=== PATIENT | male | born 1990 | race American Indian/Alaskan Native ===

== ENCOUNTER 2018-02-04 03:36 | Observation (INO) | payer SELFPAY ==
[2018-02-04] MEDS ORDERED: Sodium Chloride 0.9% 1,000 ML IV STA ×2 (03:49→05:53)
[2018-02-04] MEDS ORDERED: Morphine 4 mg/ml ISec IVP STA ×2 (03:49→05:03)
--- NOTE | 2018-02-04 03:55 | ED PDOC ---
Arrival/HPI - General Historian: Patient - History of Present Illness Time/Duration: 4-6 hours Symptom Onset: Sudden Symptom Course: Worsening Quality: Aching Severity Level: 8 Activities at Onset: Rest Context: Sitting <Jama Parker - Last Filed: 02/04/18 05:43> <Fede Amaro - Last Filed: 02/04/18 06:31> - General Chief Complaint: Back Pain Time Seen by Provider: 02/04/18 03:46 - History of Present Illness Narrative History of Present Illness (Text): 02/04/18 03:52 Patient is a 28M with a PMH of Kidney stones who comes to the Emergency department after being awoken from sleep in pain in his R. Flank. Onset was sudden. Bending over makes the pain better. Laying flat makes the pain worse. Describes the pain as throbbing. Denies any radiation. The pain has been constant since its onset. Patient denies any fever or chills but does have some nausea, No vomiting. Denies appetite. Denies any urinary symptoms. (Jama Parker) Past Medical History - Provider Review Nursing Documentation Reviewed: Yes <Fede Amaro - Last Filed: 02/04/18 06:31> Family/Social History Family/Social History: Unknown Family HX <Jama Parker - Last Filed: 02/04/18 05:43> - Physician Review Nursing Documentation Reviewed: Yes <Fede Amaro - Last Filed: 02/04/18 06:31> Allergies/Home Meds <Jama Parker - Last Filed: 02/04/18 05:43> <Fede Amaro - Last Filed: 02/04/18 06:31> Allergies/Adverse Reactions: Allergies No Known Allergies Allergy (Verified 02/04/18 03:47) Home Medications: Home Meds Medication Instructions Recorded Confirmed No Known Home Med 02/04/18 02/04/18 Review of Systems - Review of Systems Constitutional: Normal Eyes: Normal ENT: Normal Respiratory: Normal Cardiovascular: Normal Gastrointestinal: Normal Genitourinary Male: absent: Dysuria, Frequency, Hematuria Musculoskeletal: Back Pain Skin: Normal Neurological: Normal Endocrine: absent: Polyuria, Polydipsia Hemo/Lymphatic: Normal Psychiatric: Normal <Jama Parker - Last Filed: 02/04/18 05:43> - Physician Review All systems were reviewed & negative as marked: Yes <SondraFede - Last Filed: 02/04/18 06:31> Physical Exam Temperature: Afebrile Blood Pressure: Normal Pulse: Regular Respiratory Rate: Normal Appearance: Positive for: Well-Appearing, Non-Toxic, Comfortable Pain Distress: None Mental Status: Positive for: Alert and Oriented X 3 - Systems Exam Head: Present: Atraumatic, Normocephalic Pupils: Present: PERRL Extroacular Muscles: Present: EOMI Conjunctiva: Present: Normal Mouth: Present: Moist Mucous Membranes Neck: Present: Normal Range of Motion Respiratory/Chest: Present: Clear to Auscultation, Good Air Exchange. No: Respiratory Distress, Accessory Muscle Use Cardiovascular: Present: Regular Rate and Rhythm, Normal S1, S2. No: Murmurs Abdomen: Present: Normal Bowel Sounds. No: Tenderness, Distention, Peritoneal Signs Back: Present: CVA Tenderness (right) Upper Extremity: Present: Normal Inspection Lower Extremity: Present: Normal Inspection Neurological: Present: GCS=15, CN II-XII Intact, Speech Normal Skin: Present: Warm, Dry, Normal Color. No: Rashes Psychiatric: Present: Alert, Oriented x 3, Normal Concentration. No: Normal Insight <Jama Parker - Last Filed: 02/04/18 05:43> Vital Signs Reviewed: Yes <SondraFede - Last Filed: 02/04/18 06:31> Vital Signs Temp Pulse Resp BP Pulse Ox 02/04/18 06:17 70 17 148/72 98 02/04/18 03:41 98.3 F 70 18 153/73 H 99 Medical Decision Making <Jama Parker - Last Filed: 02/04/18 05:43> - Lab Interpretations I have reviewed the lab results: Yes - RAD Interpretation Heading Maker: Radiologist <Fede Amaro - Last Filed: 02/04/18 06:31> ED Course and Treatment: 02/04/18 05:46 patient in severe pain on initial presentation. 4mg of morphine relieved the pain. Also complaining of nausea relieved by Zofran CT a/p showed 3mm kidney stone with moderate hydronephrosis plan to admit (Jama Parker) Patient Seen With Resident: In agreement with resident note which contains more details about the patient. Patient was seen and evaluated with resident. Came up with plan and treatment together. 28 year old male, presents complaining of sudden onset right flank pain Plan: -- CT ABD & pelvis -- Labs -- Morphine, IV Fluids, Zofran Inj -- Urinalysis -- Reassess and disposition 02/04/18 06:00 Case was d/w who accepted to his service. on consult. ( Fede Amaro) - Lab Interpretations Lab Results: 02/04/18 03:50 02/04/18 03:50 Lab Results 02/04/18 03:50: Sodium 144, Potassium 3.9, Chloride 105, Carbon Dioxide 30, Anion Gap 13, BUN 17, Creatinine 1.0, Est GFR ( Amer) > 60, Est GFR (Non- Af Amer) > 60, Random Glucose 113 H, Calcium 9.9, Magnesium 2.1, Total Bilirubin 0.5, AST 42, ALT 40, Alkaline Phosphatase 78, Total Protein 7.8, Albumin 4.2, Globulin 3.6, Albumin/Globulin Ratio 1.2 02/04/18 03:50: WBC 11.2 H, RBC 4.59, Hgb 15.1, Hct 43.6, MCV 95.0, MCH 32.9, MCHC 34.6, RDW 11.5, Plt Count 233, MPV 9.8, Gran % 50.5, Lymph % (Auto) 39.8 H , [place] % (Auto) 8.1 H, Eos % (Auto) 1.5, Baso % (Auto) 0.1, Gran # 5.65, Lymph # (Auto) 4.5 H, [place] # (Auto) 0.9 H, Eos # (Auto) 0.2, Baso # (Auto) 0.01 - RAD Interpretation Narrative RAD Interpretations (Text): 02/04/18 05:35 IMPRESSION: 1. RIGHT proximal ureteral calculus with vbkk-oq-aylunagd hydronephrosis. 2. Incidental/non-acute findings are described above (Fede Amaro) Radiology Orders: 02/04/18 03:49 ABD & PELVIS W/O PO OR IV CONT [CT] Stat - Medication Orders Current Medication Orders: Sodium Chloride (Sodium Chloride 0.9%) 1,000 mls @ 100 mls/hr IV .Q10H STA Stop: 02/04/18 15:52 Last Admin: 02/04/18 06:15 Dose: 100 mls/hr eMAR Start Stop Document 02/04/18 06:15 IT (Rec: 02/04/18 06:15 IT [id number]) Intravenous Solution Start Date 02/04/18 Start Time 06:15 Discontinued Medications Sodium Chloride (Sodium Chloride 0.9%) 1,000 mls @ 999 mls/hr IV .Q1H1M STA Stop: 02/04/18 04:49 Last Admin: 02/04/18 04:01 Dose: 999 mls/hr eMAR Start Stop Document 02/04/18 04:01 IT (Rec: 02/04/18 04:01 IT [id number]) Intravenous Solution Start Date 02/04/18 Start Time 04:01 End Date 02/04/18 End time 05:01 Total Infusion Time 60 Morphine Sulfate (Morphine) 4 mg IVP STAT STA Stop: 02/04/18 03:50 Last Admin: 02/04/18 04:00 Dose: 4 mg MAR Pain Assessment Document 02/04/18 04:00 IT (Rec: 02/04/18 04:00 IT [id number]) Pain Reassessment Is this a pain reassessment? No Sleep Is patient sleeping during reassessment? No Presence of Pain Presence of Pain Yes Pain Scale Used Pain Scale Used Numeric Location Left, Right or Bilateral Right Pain Location Body Site Abdomen IVP Administration Document 02/04/18 04:00 IT (Rec: 02/04/18 04:00 IT [id number]) Charges for Administration # of IVP Administrations 1 Morphine Sulfate (Morphine) 4 mg IVP STAT STA Stop: 02/04/18 05:04 Last Admin: 02/04/18 05:15 Dose: 4 mg MAR Pain Assessment Document 02/04/18 05:15 IT (Rec: 02/04/18 05:15 IT [id number]) Pain Reassessment Is this a pain reassessment? No Sleep Is patient sleeping during reassessment? No Presence of Pain Presence of Pain Yes Location Left, Right or Bilateral Right Pain Location Body Site Abdomen IVP Administration Document 02/04/18 05:15 IT (Rec: 02/04/18 05:15 IT [id number]) Charges for Administration # of IVP Administrations 1 Ondansetron HCl (Zofran Inj) 4 mg IVP STAT STA Stop: 02/04/18 03:50 Last Admin: 02/04/18 04:00 Dose: 4 mg IVP Administration Document 02/04/18 04:00 IT (Rec: 02/04/18 04:00 IT [id number]) Charges for Administration # of IVP Administrations 1 Tamsulosin HCl (Flomax) 0.4 mg PO STAT STA Stop: 02/04/18 05:25 Last Admin: 02/04/18 05:41 Dose: 0.4 mg - PA / OPERATIONS DEVELOPER / Resident Statement / has reviewed & agrees with the documentation as recorded. / has examined the patient and agrees with the treatment plan. <Jama Parker - Last Filed: 02/04/18 05:43> - PA / OPERATIONS DEVELOPER / Resident Statement / has reviewed & agrees with the documentation as recorded. / has examined the patient and agrees with the treatment plan. - Scribe Statement The provider has reviewed the documentation as recorded by the Scribe <Fede Amaro - Last Filed: 02/04/18 06:31> - Scribe Statement Lenny Pedersen Provider Scribe Attestation: All medical record entries made by the Scribe were at my direction and personally dictated by me. I have reviewed the chart and agree that the record accurately reflects my personal performance of the history, physical exam, medical decision making, and the department course for this patient. I have also personally directed, reviewed, and agree with the discharge instructions and disposition. (Fede Amaro) Disposition/Present on Arrival - Present on Arrival Any Indicators Present on Arrival: No - Disposition Have Diagnosis and Disposition been Completed?: Yes Disposition Time: 05:48 Patient Plan: Admission <Jama Parker - Last Filed: 02/04/18 05:43> - Present on Arrival Any Indicators Present on Arrival: No History of DVT/PE: No History of Uncontrolled Diabetes: No Urinary Catheter: No History of Decub. Ulcer: No History Surgical Site Infection Following: None - Disposition Have Diagnosis and Disposition been Completed?: Yes Disposition Time: 06:05 Patient Plan: Observation <Fede Amaro - Last Filed: 02/04/18 06:31> - Disposition Diagnosis: Nephrolithiasis, Renal colic, Intractable pain Disposition: HOSPITALIZED Patient Problems: Current Active Problems Problem Status Onset Intractable pain Acute Nephrolithiasis Acute Renal colic Acute Condition: GUARDED Forms: [employer] (Moz[place]ican)
[2018-02-04 04:10] LABS: ALB/GLOB RATIO 1.2 (1.1-1.8); ALBUMIN 4.2 g/dL (3.0-4.8); CALCIUM 9.9 mg/dL (8.4-10.5); GFR AFRICAN-AMERICAN > 60; GFR NON-AFRICAN AMERICAN > 60
[2018-02-04 04:17] LABS: ALT/SGPT 40 U/L (7-56); AST/SGOT 42 U/L (17-59); BASO # 0.01 K/mm3 (0.0-2.0); BASO % 0.1 % (0.0-3.0); BLOOD UREA NITROGEN 17 mg/dL (7-21); EOS # 0.2 (0.0-0.7); EOS % 1.5 % (1.5-5.0); GRAN # 5.65 (1.4-6.5); GRAN % 50.5 % (50.0-68.0); HEMOGLOBIN 15.1 g/dL (14.0-18.0); LYMPH # 4.5 (1.2-3.4); LYMPH % 39.8 % (22.0-35.0); MEAN CORPUSCULAR HEMOGLOBIN 32.9 pg (25.0-35.0); MEAN CORPUSCULAR HGB CONC 34.6 g/dl (31.0-37.0); MEAN PLATELET VOLUME 9.8 fl (7.0-11.0); MONO # 0.9 (0.1-0.6); MONO % 8.1 % (1.0-6.0); RBC 4.59 10^6/uL (3.5-6.1); RED CELL DISTRIBUTION WIDTH 11.5 % (11.5-14.5); WHITE BLOOD COUNT 11.2 10^3/ul (4.5-11.0)
--- NOTE | 2018-02-04 05:30 | CT ---
EXAM: CT Abdomen and Pelvis Without Intravenous Contrast CLINICAL HISTORY: 28 years old, male; Pain; Abdominal pain; Additional info: R. Flank pain TECHNIQUE: Axial computed tomography images of the abdomen and pelvis without intravenous contrast. All CT scans at this facility use one or more dose reduction techniques, viz.: automated exposure control; ma/kV adjustment per patient size (including targeted exams where dose is matched to indication; i.e. head); or iterative reconstruction technique. Coronal and sagittal reformatted images were created and reviewed. COMPARISON: No relevant prior studies available. FINDINGS: Limitations: Lack of intravenous contrast. Lower thorax: No acute findings. ABDOMEN: Liver: Unremarkable. Gallbladder and bile ducts: No calcified stones. No ductal dilation. Pancreas: Unremarkable. No ductal dilation. Spleen: No splenomegaly. Adrenals: No mass. Kidneys and ureters: No renal calculi. Fkmn-nm-loilyecf pelvocaliectasis of RIGHT kidney. 0.5 x 0.3 x 0.3 cm calculus within RIGHT proximal ureter. Stomach and bowel: No definite mural thickening. No obstruction. Appendix: No findings to suggest acute appendicitis. PELVIS: Bladder: Unremarkable. No stones. Reproductive: Unremarkable as visualized. ABDOMEN and PELVIS: Intraperitoneal space: No significant fluid collection. No free air. Bones/joints: No acute fracture. Soft tissues: Minimal gynecomastia. Vasculature: Unremarkable. No aneurysm. Lymph nodes: No pathologically enlarged lymph nodes. IMPRESSION: 1. RIGHT proximal ureteral calculus with mslt-xo-kxnabwlg hydronephrosis. 2. Incidental/non-acute findings are described above.
[2018-02-04 05:41] LABS: PH,URINE 5.5 (4.7-8.0); URINE BILIRUBIN SMALL (NEGATIVE); URINE BLOOD LARGE (NEGATIVE); URINE GLUCOSE (UA) NEGATIVE (NEGATIVE); URINE LEUKOCYTE ESTERASE NEGATIVE Leu/uL (NEGATIVE); URINE PROTEIN 100 mg/dL (<30 mg/dL); URINE UROBILINOGEN 0.2 E.U./dL (<1 E.U./dL)
[2018-02-04 06:52] LABS: URINE APPEARANCE CLOUDY (CLEAR); URINE COLOR DARK YELLOW (YELLOW)
[2018-02-04 06:53] LABS: URINE EPITHELIAL CELLS 0 - 2 /hpf (0-5); URINE WBC 0 - 2 /hpf (0-6)
[2018-02-04 06:54] LABS: URINE BACTERIA FEW (NEG); URINE RBC 20 - 25 /hpf (0-2)
[2018-02-04] MEDS: Morphine 4 mg/ml ISec IVP PRN ×2 (10:14→21:27)
[2018-02-04 10:59] VITALS: BMI 23.0
[2018-02-04] MEDS ORDERED: Influenza Vaccine 60 mcg/0.5 mL SYR (4YR UP) IM ONE (14:33)
[2018-02-04] MEDS ORDERED: Sodium Chloride 0.45% 1,000 ML IV SCH (22:30)
[2018-02-05] MEDS: Morphine 4 mg/ml ISec IVP PRN (06:14)
--- NOTE | 2018-02-05 06:44 | PCM.URO ---
Urology Progress Note - Objective Lab Studies: Reviewed (thanks for gu consult kub, repeat labs, out pt management) Intake & Output: Intake & Output 02/04/18 02/04/18 02/05/18 06:59 18:59 06:59 Intake Total 1080 Balance 1080 Weight 170 lb Intake: Oral 1080 Other: # Voids Urine, Voided 2 # Bowel Movements 0 Vital Signs: Vital Signs - 24 hr 02/04/18 02/04/18 02/04/18 08:00 10:51 14:00 Temperature 98.6 F 98.4 F 98.2 F Pulse Rate 72 68 61 Respiratory 18 18 18 Rate Blood Pressure 138/79 146/70 108/69 O2 Sat by Pulse 98 98 Oximetry 02/04/18 22:03 Temperature 98.4 F Pulse Rate 68 Respiratory 18 Rate Blood Pressure 130/86 O2 Sat by Pulse 98 Oximetry
[2018-02-05 07:54] LABS: BLOOD UREA NITROGEN 11 mg/dL (7-21); CALCIUM 9.8 mg/dL (8.4-10.5); GFR AFRICAN-AMERICAN > 60; GFR NON-AFRICAN AMERICAN > 60
[2018-02-05 08:09] VITALS: BP 120/67; PULSE 61; RESP 16; TEMP 98.3; O2SAT 100
--- NOTE | 2018-02-05 10:13 | RAD ---
HISTORY: compare with ct scan/ can we see the stone COMPARISON: No prior. FINDINGS: BOWEL: There is a nonobstructive bowel gas pattern appreciated. Moderate retained fecal material scattered throughout the right and transverse colon segments. No free intrarenal gas or abnormal intra-abdominal calcifications. The psoas margins are adequately defined. BONES: Normal. OTHER FINDINGS: None. IMPRESSION: No active disease.
--- NOTE | 2018-02-06 07:37 | HP ---
A 28-year-old male came in with renal colic. HISTORY OF PRESENT ILLNESS: Patient has been complaining that his pain got worse, came to the ER. He had similar pain a few months ago and was discharged home, but he did have this severe pain, could not stay quiet, came to the ER for evaluations and the patient knows that he had stone and he was evaluated in the Emergency Room. A CT scan noted that he has mild hydronephrosis, hydroureter with right kidney stone at 5 mm and less. Patient denied any nausea, vomiting, fever, or chills. No dizziness. No other complaints. ALLERGIES: PATIENT HAS NO KNOWN ALLERGY. MEDICATIONS: None. SOCIAL HISTORY: No smoking. No drinking. FAMILY HISTORY: Diabetes; otherwise, negative. REVIEW OF SYSTEMS: Negative. PHYSICAL EXAMINATION VITAL SIGNS: Temperature 98.6, heart rate 72, blood pressure 138/79, respirations 18, saturation 98%. HEAD AND NECK: Normal. No JVD. No thyromegaly. CHEST: Clear. Good air entry. CARDIAC: First sound and second sound are normal. ABDOMEN: Soft, nontender. There is mild tenderness in the right renal area. EXTREMITIES: No edema. NEUROLOGICAL: Normal. LABORATORY DATA: White count 11.2, hemoglobin 15.1, hematocrit 43.6, platelets 233.000. Chemistry feliciano, the patient had sodium 144, potassium 3.9, chloride 105, bicarbonate 30, BUN 17, creatinine 1. Blood sugar 113. Liver function test is normal. Urine is negative. Large blood, small bilirubin, red blood cells 20-25 and white cells 0-2. Patient also had CT abdomen and pelvis. Patient had a CT abdomen without intravenous contrast, which shows a right calculus with kjlh-ua-fdfzizxs hydronephrosis and smaller stone was noted in the right ureter, which is 0.5 x 0.3 x 0.3. IMPRESSION AND PLAN: Acute renal colic with acute muyl-tk-efnzawjp hydronephrosis. We will admit the patient on IV fluids, IV morphine p.r.n., put him on Regular diet. We will get a Renal, Urology consult to see the patient; however, the patient may need interventional with the overall findings. We will continue current therapy for now. Jm Martinez MD [facility] # [id number]
--- NOTE | 2018-02-06 11:35 | DS ---
HISTORY OF PRESENT ILLNESS: A 28-year-old male, came in with renal colic. The patient was admitted, IV fluid, on morphine IV. The patient is stable. There is no fever. Was given Levaquin on discharge and his urinalysis shows microscopic hematuria. The patient has a kidney stone before that is 0.5 x 0[address] without IV contrast. Right kidney hydroureter and mild to moderate hydronephrosis. The patient was discharged by Dr. Donahue to follow up for [facility] as outpatient. He was discharged. The patient was physically stable. PHYSICAL EXAMINATION: VITAL SIGNS: His temperature 98.3, heart rate 61, blood pressure 120/67, respirations 16, saturation 100%. HEAD AND NECK: Normal. No JVD. CHEST: Clear. CARDIAC: First sound and second sound normal. ABDOMEN: Soft, nontender. EXTREMITIES: No edema. NEUROLOGICAL: Normal. DISCHARGE DIAGNOSES: 1. Renal colic. 2. Right hydronephrosis. PLAN: Discharge home on Levaquin. See Dr. Donahue in the office. Jm Martinez MD
== END 2018-02-05 14:20 | disposition home or self-care (01) ==
LOC: ED 03:36 → ERH 05:51 → 5RSO 08:41
PROVIDERS: ADMIT Internal Medicine; ATTEND Internal Medicine
DX: N13.2 Hydronephrosis with renal and ureteral calculous obstruction (principal)
CPT/HCPCS: 36415; 74022; 74176; 80048; 80053; 81001; 83735; 85025; 96361; 96374; 96375; 96376; 99285; G0378; J2270; J2405; J7030; J7040

== ENCOUNTER 2018-05-22 11:36 | Emergency (ER) | payer BC ==
[2018-05-22 11:37] VITALS: BMI 23.0
--- NOTE | 2018-05-22 12:30 | ED PDOC ---
Arrival/HPI - General Chief Complaint: Dizziness/Lightheaded Time Seen by Provider: 05/22/18 12:05 Historian: Patient - History of Present Illness Narrative History of Present Illness (Text): 05/22/18 12:06 28 year old male, with past medical history of kidney stones, who works at a recycling plant, present to the emergency department s/p near syncopal episode prior to arrival. Patient states he was at work today when suddenly he felt like he was about to pass out, with feelings of heat, sweating, nausea, and tunnel vision. Patient informs visiting urgent care for the presented symptoms where he was advised to change his diet for possible vertigo. However, because of recurrent episodes of the symptoms, patient presents to the Emergency department for medical evaluation. Patient additionally informs chronic diarrhea and poor diet. Patient currently denies any chest pain, shortness of breath, palpitations, fever, chills, nausea, vomiting, abdominal pain, or any other complaints. Patient denies smoking cigarettes or drinking alcohol, but admits to occasional marijuana use. Time/Duration: Prior to Arrival Symptom Onset: Sudden Symptom Course: Resolved Activities at Onset: Light Context: Work Past Medical History - Provider Review Nursing Documentation Reviewed: Yes - Cardiac Hx Cardiac Disorders: No - Pulmonary Hx Respiratory Disorders: No - Neurological Hx Neurological Disorder: Yes Hx Vertigo: Yes - HEENT Hx HEENT Disorder: No - Renal Hx Renal Disorder: Yes Hx Kidney Stones: Yes - Endocrine/Metabolic Hx Endocrine Disorders: No - Hematological/Oncological Hx Blood Disorders: No - Integumentary Hx Dermatological Disorder: No - Musculoskeletal/Rheumatological Hx Musculoskeletal Disorders: No Hx Falls: No - Gastrointestinal Hx Gastrointestinal Disorders: No - Genitourinary/Gynecological Hx Genitourinary Disorders: Yes Hx Hematuria: Yes Other/Comment: frequency/ dysuria - Psychiatric Hx Psychophysiologic Disorder: No Hx Substance Use: Yes (MARIJUANA) - Surgical History Other/Comment: LEFT HAND SURGERY - Anesthesia Hx Anesthesia: Yes Hx Anesthesia Reactions: No Hx Malignant Hyperthermia: No Family/Social History - Physician Review Nursing Documentation Reviewed: Yes Family/Social History: No Known Family HX Smoking Status: Never Smoked Hx Alcohol Use: No Hx Substance Use: Yes (MARIJUANA) Allergies/Home Meds Allergies/Adverse Reactions: Allergies No Known Allergies Allergy (Verified 05/22/18 11:56) Home Medications: Home Meds Medication Instructions Recorded Confirmed No Known Home Med 02/04/18 05/22/18 Review of Systems - Physician Review All systems were reviewed & negative as marked: Yes - Review of Systems Constitutional: absent: Fevers Respiratory: absent: SOB Cardiovascular: absent: Chest Pain, Palpitations Gastrointestinal: Diarrhea. absent: Abdominal Pain, Nausea, Vomiting Neurological: Dizziness (resolved) Physical Exam - Physical Exam Narrative Physical Exam (Text): 05/22/18 12:06 Gen: VS reviewed, alert, well developed, well nourished, nontoxic, mild distress ENT: dry mucous membrane, normal pharynx Eye: EOMI, PERRL Neck: no JVD, supple, no adenopathy CV: regular rate, regular rhythm, no rubs,no murmur, no gallops, S1, S2, pulses equal and strong Pulm: no distress, clear to auscultation, no wheeze, no rhonchi, breath sounds equal, no rales Abd: soft, nontender, no guarding, no rebound, no rigidity, normal bowel sounds Ext: no edema Skin: good color, no rash, no cyanosis Psych: responds appropriately to questions, normal affect Neuro: oriented x3, CN2-12 intact grossly, motor intact, sensation intact Vital Signs Reviewed: Yes Vital Signs Temp Pulse Resp BP Pulse Ox 05/22/18 13:37 80 18 107/60 98 05/22/18 11:56 98.5 F 83 17 112/59 L 98 Temperature: Afebrile Blood Pressure: Normal Pulse: Regular Respiratory Rate: Normal Appearance: Positive for: Well-Appearing, Non-Toxic, Comfortable Pain Distress: None Mental Status: Positive for: Alert and Oriented X 3 Medical Decision Making ED Course and Treatment: 05/22/18 12:06 Impression: 28 year old male presents to the emergency department s/p near syncopal episode. Plan: --ekg --labs --Chest X-Ray --Urinalysis -- Reassess and disposition Prior Visits: Notes and results from previous visits were reviewed. Progress Notes: 05/22/18 13:04 patient was seen for recurrent episode of near syncope. no acute symptoms prior to events such as headache,chest pain,abdominal pain,back pain, no fhx of sudden cardiac . will [facility] labs, ekg, cxr and reassess. patient is clinically stable and if workup negative appears to be stable for dc and pcp follow up. 05/22/18 13:50 patient remained stable throughout ED course, stable for dc, will refer to pcp, patient also informed for the necessity of cardiology follow up. - Lab Interpretations Lab Results: 05/22/18 12:20 05/22/18 12:20 Lab Results 05/22/18 12:20: Sodium 143, Potassium 4.1, Chloride 102, Carbon Dioxide 29, Anion Gap 17, BUN 15, Creatinine 1.1, Est GFR ( Amer) > 60, Est GFR (Non- Af Amer) > 60, Random Glucose 78, Calcium 9.6, Total Bilirubin 0.9, AST 24, ALT 32, Alkaline Phosphatase 76, Total Protein 8.1, Albumin 4.5, Globulin 3.6, Albumin/Globulin Ratio 1.3 05/22/18 12:20: WBC 7.4 D, RBC 4.52, Hgb 14.9, Hct 42.1, MCV 93.1, MCH 33.0, MCHC 35.4, RDW 11.5, Plt Count 216, MPV 9.8, Gran % 73.0 H, Lymph % (Auto) 20.6 L, [place] % (Auto) 6.2 H, Eos % (Auto) 0.1 L, Baso % (Auto) 0.1, Gran # 5.39, Lymph # (Auto) 1.5, [place] # (Auto) 0.5, Eos # (Auto) 0.0, Baso # (Auto) 0.01 05/22/18 12:10: Urine Color Yellow, Urine Appearance Clear, Urine pH 6.0, Ur Specific [place] >= 1.030, Urine Protein 100 H, Urine Glucose (UA) Negative, Urine Ketones Negative, Urine Blood Negative, Urine Nitrate Negative, Urine Bilirubin Negative, Urine Urobilinogen 0.2, Ur Leukocyte Esterase Negative, Urine RBC 0 - 2, Urine WBC 2 - 5, Ur Epithelial Cells 0 - 2, Amorphous Sediment Few, Urine Bacteria Mod, Coarse Granular Casts Trace H, Urine Other Usperm - RAD Interpretation Narrative RAD Interpretations (Text): 05/22/18 13:06 no focal infiltrate, no ptx, no cardiomegaly 05/22/18 13:20 Chest x-ray reviewed by radiologist, shows; No active disease. Radiology Orders: 05/22/18 12:06 X-RAY [CHEST TWO VIEWS (PA/LAT)] [RAD] Stat Coal Equipment Operator: ED Physician, Radiologist - EKG Interpretation EKG Interpretation (Text): 05/22/18 12:16 NSR @ 77 bpm, nml qrs, nml axis with early repolarization. Interpreted by ED Physician: Yes Type: 12 lead EKG - Scribe Statement The provider has reviewed the documentation as recorded by the Scribe Theodore Garcia, training with Darrin All medical record entries made by the Scribe were at my direction and personally dictated by me. I have reviewed the chart and agree that the record accurately reflects my personal performance of the history, physical exam, medical decision making, and the department course for this patient. I have also personally directed, reviewed, and agree with the discharge instructions and disposition. Disposition/Present on Arrival - Present on Arrival Any Indicators Present on Arrival: No History of DVT/PE: No History of Uncontrolled Diabetes: No Urinary Catheter: No History of Decub. Ulcer: No History Surgical Site Infection Following: None - Disposition Have Diagnosis and Disposition been Completed?: Yes Diagnosis: Near syncope Disposition: HOME/ ROUTINE Disposition Time: 14:00 Patient Problems: Current Active Problems Problem Status Onset Near syncope Acute Condition: GOOD Discharge Instructions (ExitCare): Near Fainting (DC) Print Language: LATVIAN Additional Instructions: stay well hydrated (water). return for any new or worsening symptoms. you must follow up with a primary care doctor. Referrals: [facility] ([facility] [Non-Staff] - Follow up with primary Forms: [employer] ([place]), WORK NOTE
[2018-05-22 12:33] LABS: URINE BILIRUBIN NEGATIVE (NEGATIVE); URINE BLOOD NEGATIVE (NEGATIVE); URINE GLUCOSE (UA) NEGATIVE (NEGATIVE); URINE LEUKOCYTE ESTERASE NEGATIVE Leu/uL (NEGATIVE); URINE PROTEIN 100 mg/dL (<30 mg/dL); URINE UROBILINOGEN 0.2 E.U./dL (<1 E.U./dL)
[2018-05-22 12:35] LABS: URINE APPEARANCE CLEAR (CLEAR); URINE COLOR YELLOW (YELLOW)
[2018-05-22 12:36] LABS: BASO # 0.01 K/mm3 (0.0-2.0); BASO % 0.1 % (0.0-3.0); EOS % 0.1 % (1.5-5.0); GRAN # 5.39 (1.4-6.5); HEMOGLOBIN 14.9 g/dL (14.0-18.0); LYMPH # 1.5 (1.2-3.4); LYMPH % 20.6 % (22.0-35.0); MEAN CELL VOLUME 93.1 fl (80.0-105.0); MEAN CORPUSCULAR HGB CONC 35.4 g/dl (31.0-37.0); MEAN PLATELET VOLUME 9.8 fl (7.0-11.0); MONO # 0.5 (0.1-0.6); MONO % 6.2 % (1.0-6.0); RBC 4.52 10^6/uL (3.5-6.1); RED CELL DISTRIBUTION WIDTH 11.5 % (11.5-14.5); WHITE BLOOD COUNT 7.4 10^3/ul (4.5-11.0)
[2018-05-22 12:45] LABS: ALB/GLOB RATIO 1.3 (1.1-1.8); ALBUMIN 4.5 g/dL (3.0-4.8); ALT/SGPT 32 U/L (7-56); AST/SGOT 24 U/L (17-59); BLOOD UREA NITROGEN 15 mg/dL (7-21); CALCIUM 9.6 mg/dL (8.4-10.5); GFR AFRICAN-AMERICAN > 60; GFR NON-AFRICAN AMERICAN > 60
[2018-05-22 12:46] LABS: URINE BACTERIA MOD (NEG); URINE EPITHELIAL CELLS 0 - 2 /hpf (0-5); URINE RBC 0 - 2 /hpf (0-2)
[2018-05-22 12:48] LABS: URINE AMORPHOUS SEDIMENT FEW; URINE COARSE GRANULAR CAST TRACE /hpf (0-2)
--- NOTE | 2018-05-22 13:05 | RAD ---
HISTORY: Near syncope COMPARISON: No prior. TECHNIQUE: Chest PA and lateral FINDINGS: LUNGS: No active pulmonary disease. PLEURA: No significant pleural effusion identified. No pneumothorax apparent. CARDIOVASCULAR: Normal. OSSEOUS STRUCTURES: No significant abnormalities. VISUALIZED UPPER ABDOMEN: Normal. OTHER FINDINGS: None. IMPRESSION: No active disease.
[2018-05-22 14:00] VITALS: RESP 18
[2018-05-22 14:02] VITALS: BP 109/57; PULSE 72; TEMP 98.9; O2SAT 99
--- NOTE | 2018-05-22 15:40 | CARD ---
APPROVED REPORT EKG Measurement Heart [id number] NM [id number] <Conclusion> Normal sinus rhythm ST elevation, probably due to early repolarization Borderline ECG
== END 2018-05-22 14:01 | disposition home or self-care (01) ==
LOC: ED 11:36
DX: R55 Syncope and collapse (principal)

== ENCOUNTER 2018-11-15 18:41 | Emergency (ER) | payer BC ==
[2018-11-15 19:03] VITALS: BMI 20.9
[2018-11-15 19:07] VITALS: TEMP 99.1
[2018-11-15 20:09] LABS: URINE BILIRUBIN NEGATIVE (NEGATIVE); URINE BLOOD NEGATIVE (NEGATIVE); URINE GLUCOSE (UA) NEGATIVE (NEGATIVE); URINE LEUKOCYTE ESTERASE NEGATIVE Leu/uL (NEGATIVE); URINE PROTEIN 30 mg/dL (<30 mg/dL); URINE UROBILINOGEN 0.2 E.U./dL (<1 E.U./dL)
[2018-11-15 20:25] LABS: URINE APPEARANCE CLEAR (CLEAR); URINE COLOR YELLOW (YELLOW)
[2018-11-15 20:29] LABS: URINE RBC NEGATIVE /hpf (0-2)
[2018-11-15 20:30] LABS: URINE BACTERIA FEW /hpf
--- NOTE | 2018-11-15 20:58 | ED PDOC ---
Arrival/HPI - General Chief Complaint: Male Genitourinary Time Seen by Provider: 11/15/18 18:49 Historian: Patient - History of Present Illness Narrative History of Present Illness (Text): 28 y/o M w/ h/o kidney stones presenting to the Emergency Room with complaint of right sided flank pain present for the past 2 weeks worsened over the last 2 days. The patient reports intermittent colicky pain localized to the right lower lumbar region, but denies nausea, emesis, fevers, dysuria, hematuria or abdominal pain. He reports similar pain several times prior that was self- limited in nature. Of note, the patient reports history of smegma around his penis intermittently in humid conditions that resolved once he took care of his hygiene. He reports a family history of diabetes, but denies polyuria, polyphagia, polydipsia or unintentional weight loss at this time. Time/Duration: > week Symptom Onset: Gradual Symptom Course: Intermittent Severity Level: Moderate Activities at Onset: Rest Context: Home Past Medical History - Provider Review Nursing Documentation Reviewed: Yes - Travel History Have you recently traveled outside [place] w/in the past 3 mons?: No - Infectious Disease Hx of Infectious Diseases: None - Cardiac Hx Cardiac Disorders: No - Pulmonary Hx Respiratory Disorders: No - Neurological Hx Neurological Disorder: Yes Hx Vertigo: Yes - HEENT Hx HEENT Disorder: No - Renal Hx Renal Disorder: Yes Hx Kidney Stones: Yes - Endocrine/Metabolic Hx Endocrine Disorders: No - Hematological/Oncological Hx Blood Disorders: No - Integumentary Hx Dermatological Disorder: No - Musculoskeletal/Rheumatological Hx Musculoskeletal Disorders: No - Gastrointestinal Hx Gastrointestinal Disorders: No - Genitourinary/Gynecological Hx Genitourinary Disorders: Yes Hx Hematuria: Yes Other/Comment: frequency/ dysuria - Psychiatric Hx Psychophysiologic Disorder: No Hx Substance Use: Yes (MARIJUANA) - Surgical History Other/Comment: LEFT HAND SURGERY - Anesthesia Hx Anesthesia: Yes Hx Anesthesia Reactions: No Hx Malignant Hyperthermia: No Family/Social History - Physician Review Nursing Documentation Reviewed: Yes Family/Social History: Unknown Family HX Smoking Status: Never Smoked Hx Alcohol Use: No Hx Substance Use: Yes (MARIJUANA) Allergies/Home Meds Allergies/Adverse Reactions: Allergies No Known Allergies Allergy (Verified 05/22/18 11:56) Home Medications: Home Meds Medication Instructions Recorded Confirmed RX: No Known Home Med 02/04/18 05/22/18 Review of Systems - Physician Review All systems were reviewed & negative as marked: Yes - Review of Systems Gastrointestinal: absent: Abdominal Pain, Stool Changes, Constipation Genitourinary Male: Urinary Output Changes. absent: Dysuria, Frequency, Hematuria Musculoskeletal: Back Pain, Myalgias Physical Exam Vital Signs Reviewed: Yes Vital Signs Temp Pulse Resp BP Pulse Ox 11/15/18 18:41 99.1 F 71 18 132/69 98 Temperature: Afebrile Blood Pressure: Normal Pulse: Regular Respiratory Rate: Normal Appearance: Positive for: Well-Appearing, Non-Toxic, Comfortable Pain Distress: Mild Mental Status: Positive for: Alert and Oriented X 3 - Systems Exam Head: Present: Atraumatic, Normocephalic Pupils: Present: PERRL Extroacular Muscles: Present: EOMI Conjunctiva: Present: Normal Mouth: Present: Moist Mucous Membranes Respiratory/Chest: Present: Clear to Auscultation, Good Air Exchange. No: Respiratory Distress Cardiovascular: Present: Regular Rate and Rhythm, Normal S1, S2. No: Murmurs Abdomen: Present: Normal Bowel Sounds. No: Tenderness, Distention Back: Present: CVA Tenderness (R sided CVA tenderness). No: Paraspinal Tenderness Neurological: Present: GCS=15, CN II-XII Intact, Speech Normal Skin: Present: Warm, Dry, Normal Color. No: Rashes Medical Decision Making ED Course and Treatment: 11/15/18 20:08 Impression 28 y/o M w/ h/o kidney stones presenting with flank pain Differential Diagnosis Included But Is Not Limited To: --Kidney Stone --Pyelonephititis --UTI Plan --UA --Urine Culture --Toradol --Reassess & disposition Progress Notes 11/15/18 20:45 UA shows no evidence of blood or bacteria at this time. Patient updated on findings and advised to continue adequate hydration as well as supportive care for pain with NSAIDs. He reports complete resolution in his symptoms after administration of Toradol. Shared decision making discussion for risk vs benefit of CT/US for definitive visual confirmation for the presence of kidney stones with the patient desiring to postpone and employ watchful waiting for the arise of worsening symptoms. He is advised to follow up with his PCP. He is stable for discharge. - Lab Interpretations Lab Results: Lab Results 11/15/18 19:45: Urine Color Yellow, Urine Appearance Clear, Urine pH 6.0, Ur Specific [place] 1.025, Urine Protein 30 H, Urine Glucose (UA) Negative, Urine Ketones Negative, Urine Blood Negative, Urine Nitrate Negative, Urine Bilirubin Negative, Urine Urobilinogen 0.2, Ur Leukocyte Esterase Negative, Urine RBC Negative, Urine WBC 5 - 10 H, Ur Epithelial Cells 4 - 5, Urine Bacteria Few, Hyaline Casts 2 - 5 I have reviewed the lab results: Yes - Medication Orders Current Medication Orders: Discontinued Medications Ketorolac Tromethamine (Toradol) 30 mg IVP STAT STA Stop: 11/15/18 19:51 Last Admin: 11/15/18 20:00 Dose: 30 mg MAR Pain Assessment Document 11/15/18 20:00 RD (Rec: 11/15/18 20:00 RD [facility] [place] Pain Reassessment Is this a pain reassessment? No Sleep Is patient sleeping during reassessment? No Presence of Pain Presence of Pain Yes IVP Administration Document 11/15/18 20:00 RD (Rec: 11/15/18 20:00 RD [facility] Charges for Administration # of IVP Administrations 1 Disposition/Present on Arrival - Present on Arrival Any Indicators Present on Arrival: No History of DVT/PE: No History of Uncontrolled Diabetes: No Urinary Catheter: No History of Decub. Ulcer: No History Surgical Site Infection Following: None - Disposition Have Diagnosis and Disposition been Completed?: Yes Diagnosis: Flank pain Disposition: HOME/ ROUTINE Disposition Time: 20:58 Patient Plan: Discharge Condition: STABLE Discharge Instructions (ExitCare): Flank Pain (DC) Print Language: LATVIAN Referrals: Ritu Morris MD [Medical Doctor] - Follow up with primary [facility] [place] [facility] [place] - Follow up with primary Forms: 1calendar (Lithuanian)
[2018-11-16 04:59] VITALS: BP 128/70; PULSE 69; RESP 17; O2SAT 100
== END 2018-11-15 21:30 | disposition home or self-care (01) ==
LOC: ED 18:41
DX: R10.9 Unspecified abdominal pain (principal)
CPT/HCPCS: 81001; 87086; 96374; 99283; J1885

== ENCOUNTER 2018-12-01 09:17 | Day surgery (SDC) | payer BC ==
[2018-11-30 14:29] VITALS: BMI 20.4
[2018-12-01] MEDS ORDERED: Propofol 10 mg/ml Inj (20 ML) ONE ×2 (09:29→09:56)
[2018-12-01] MEDS ORDERED: Lactated Ringer's 1,000 ML IV SCH (09:30)
[2018-12-01 09:43] VITALS: O2SAT 100
[2018-12-01 11:03] VITALS: RESP 16
[2018-12-01 14:44] VITALS: BP 106/54; PULSE 54; TEMP 97.7
== END 2018-12-01 13:27 | disposition home or self-care (01) ==
LOC: ENDO 09:17
PROVIDERS: ATTEND Internal Medicine Gastroenterology
DX: K29.70 Gastritis, unspecified, without bleeding (principal); K64.1 Second degree hemorrhoids; R19.7 Diarrhea, unspecified; R63.4 Abnormal weight loss
CPT/HCPCS: 43239; 45380; 88305; 88342; J2001; J2704; J2765; J7120

== ENCOUNTER 2019-03-04 21:53 | Emergency (ER) | payer BC ==
[2019-03-04 21:54] VITALS: BMI 20.4
--- NOTE | 2019-03-04 22:41 | ED PDOC ---
Arrival/HPI - General Historian: Patient - History of Present Illness Narrative History of Present Illness (Text): 03/04/19 22:35 29 year old male, whose past medical history includes chronic cervical spine pain, who presents to the ED after waking up from sleep with right shoulder/neck pain. Patient described pain as tight and denies any recent trauma or fall. Patient states pain is non-radiating and localized over his right shoulder blade. Patient denies any chest pain, shortness of breath, tearing pain, headache, or any other somatic complaints. Time/Duration: Other (this morning) Symptom Onset: Gradual Symptom Course: Unchanged Activities at Onset: Light Context: Home <Otto Faustin - Last Filed: 03/05/19 00:25> Past Medical History - Provider Review Nursing Documentation Reviewed: Yes - Infectious Disease Hx of Infectious Diseases: None - Cardiac Hx Cardiac Disorders: No - Pulmonary Hx Respiratory Disorders: No - Neurological Hx Paralysis: No - HEENT Hx HEENT Disorder: No - Renal Hx Renal Disorder: Yes Hx Kidney Stones: Yes - Endocrine/Metabolic Hx Endocrine Disorders: No - Hematological/Oncological Hx Blood Transfusions: No - Integumentary Hx Dermatological Disorder: No - Musculoskeletal/Rheumatological Hx Musculoskeletal Disorders: No - Gastrointestinal Hx Gastrointestinal Disorders: No - Genitourinary/Gynecological Hx Genitourinary Disorders: Yes Hx Hematuria: Yes Other/Comment: frequency/ dysuria - Psychiatric Hx Emotional Abuse: No Hx Physical Abuse: No Hx Substance Use: Yes (MARJUANA, LAST DOSE THIS AM) - Surgical History Other/Comment: LEFT HAND SURGERY - Anesthesia Hx Anesthesia Reactions: No Hx Malignant Hyperthermia: No - Suicidal Assessment Feels Threatened In Home Enviroment: No <Otto Faustin - Last Filed: 03/05/19 00:25> Family/Social History - Physician Review Nursing Documentation Reviewed: Yes Family/Social History: Unknown Family HX Smoking Status: Never Smoked Hx Alcohol Use: No Hx Substance Use: Yes (MARJUANA, LAST DOSE THIS AM) <Otto Faustin - Last Filed: 03/05/19 00:25> Allergies/Home Meds <Fede Amaro - Last Filed: 03/04/19 23:08> <Otto Faustin - Last Filed: 03/05/19 00:25> Allergies/Adverse Reactions: Allergies No Known Allergies Allergy (Verified 05/22/18 11:56) Review of Systems - Physician Review All systems were reviewed & negative as marked: Yes - Review of Systems Constitutional: absent: Fevers Eyes: absent: Vision Changes, Eye Pain ENT: absent: Hearing Changes Respiratory: Normal. absent: SOB, Cough Cardiovascular: Normal. absent: Chest Pain Gastrointestinal: absent: Abdominal Pain, Diarrhea, Nausea, Vomiting Musculoskeletal: Neck Pain (+spasm), Myalgias. absent: Arthralgias, Back Pain, Joint Swelling Skin: absent: Rash, Pruritis Neurological: absent: Headache, Dizziness Psychiatric: absent: Anxiety, Depression, Suicidal Ideation <Otto Faustin Q - Last Filed: 03/05/19 00:25> Physical Exam Vital Signs Reviewed: Yes Temperature: Afebrile Blood Pressure: Normal Pulse: Regular Respiratory Rate: Normal Appearance: Positive for: Well-Appearing, Non-Toxic, Comfortable Pain Distress: Moderate Mental Status: Positive for: Alert and Oriented X 3 - Systems Exam Head: Present: Atraumatic, Normocephalic Pupils: Present: PERRL Extroacular Muscles: Present: EOMI Conjunctiva: Present: Normal Ears: Present: NORMAL TM, Normal Canal. No: Erythema Mouth: Present: Moist Mucous Membranes Pharnyx: No: ERYTHEMA, EXUDATE, TONSILS ENLARGED Nose (External): Present: Atraumatic. No: Abrasion, Contusion, Laceration Nose (Internal): Present: Normal Inspection, No Active Bleeding. No: Rhinorrhea, Septal Hematoma, Epistaxis Neck: Present: Paraspinal Tenderness (Spasm over right trapezius with mild tenderness), Trachea Midline. No: Meningeal Signs, MIDLINE TENDERNESS, Lymphadenopathy Respiratory/Chest: Present: Clear to Auscultation, Good Air Exchange. No: Respiratory Distress, Accessory Muscle Use Cardiovascular: Present: Regular Rate and Rhythm, Normal S1, S2. No: Murmurs Abdomen: No: Tenderness, Distention, Peritoneal Signs, Rebound, Guarding Back: Present: Normal Inspection. No: CVA Tenderness, Midline Tenderness Upper Extremity: Present: Normal Inspection, Normal ROM, NORMAL PULSES, Neurovascularly Intact, Capillary Refill < 2s. No: Cyanosis, Edema, Tenderness, Swelling, Erythema, Temperature Abnormalties, Deformity Lower Extremity: Present: Normal Inspection, NORMAL PULSES, Normal ROM, Neurovascularly Intact, Capillary Refill < 2 s. No: Edema, CALF TENDERNESS, Gita's Sign, Tenderness, Swelling, Deformity Neurological: Present: GCS=15, CN II-XII Intact, Speech Normal, Motor Func Grossly Intact, Normal Sensory Function, Normal Cerebellar Funct Skin: Present: Warm, Dry, Normal Color. No: Rashes Psychiatric: Present: Alert, Oriented x 3, Normal Insight, Normal Concentration <Otto Faustin - Last Filed: 03/05/19 00:25> Medical Decision Making - Medication Orders Current Medication Orders: Discontinued Medications Diazepam (Valium) 10 mg PO ONCE ONE; Protocol Stop: 03/04/19 22:40 Ketorolac Tromethamine (Toradol) 60 mg IM STAT STA Stop: 03/04/19 22:40 <Fede Amaro - Last Filed: 03/04/19 23:08> ED Course and Treatment: 03/04/19 22:35 Impression: 29 year old male complaining of right-sided shoulder/neck pain since waking up this morning. Plan: -- Toradol -- Valium -- Reassess and disposition 03/05/19 00:23 -Pt. feels completely relief, request to be discharged home, will discharge home. -Discharge home with motrin, flexeril, bed rest, follow up with your own pmd and orthopedic within 2 days, return to the ER for any new or worsening signs or symptoms. <Otto Faustin - Last Filed: 03/05/19 00:25> - PA / KITCHEN SUPERVISOR / Resident Statement HERMINIO has reviewed & agrees with the documentation as recorded. HERMINIO has examined the patient and agrees with the treatment plan. <Fede Amaro - Last Filed: 03/04/19 23:08> - PA / KITCHEN SUPERVISOR / Resident Statement HERMINIO has reviewed & agrees with the documentation as recorded. HERMINIO has examined the patient and agrees with the treatment plan. - Scribe Statement The provider has reviewed the documentation as recorded by the Bret Woodson Provider Scribe Attestation: All medical record entries made by the Scribtyrese were at my direction and personally dictated by me. I have reviewed the chart and agree that the record accurately reflects my personal performance of the history, physical exam, medical decision making, and the department course for this patient. I have also personally directed, reviewed, and agree with the discharge instructions and disposition. <Otto Faustin - Last Filed: 03/05/19 00:25> Disposition/Present on Arrival <Fede Amaro - Last Filed: 03/04/19 23:08> - Present on Arrival Any Indicators Present on Arrival: No History of DVT/PE: No History of Uncontrolled Diabetes: No Urinary Catheter: No History of Decub. Ulcer: No History Surgical Site Infection Following: None - Disposition Have Diagnosis and Disposition been Completed?: Yes Disposition Time: 00:24 Patient Plan: Discharge <Otto Faustin - Last Filed: 03/05/19 00:25> - Disposition Diagnosis: Trapezius muscle spasm Disposition: HOME/ ROUTINE Condition: IMPROVED Additional Instructions: -Discharge home with motrin, flexeril, bed rest, follow up with your own pmd and orthopedic within 2 days, return to the ER for any new or worsening signs or symptoms. Prescriptions: Cyclobenzaprine [Cyclobenzaprine HCl] 10 mg PO TID PRN #21 tab PRN Reason: other Ibuprofen [Motrin] 600 mg PO QID PRN #30 tab PRN Reason: Other Referrals: PCP,NO [Primary Care Provider] - Follow up with primary [facility] [place] [facility] [place] - Follow up with primary Travis Beatty DO [Staff Provider] - Follow up with primary Forms: WORK NOTE
[2019-03-04 23:56] VITALS: TEMP 98.6
[2019-03-05 01:51] VITALS: BP 117/68; PULSE 65; RESP 17; O2SAT 99
== END 2019-03-05 01:10 | disposition home or self-care (01) ==
LOC: ED 21:53
DX: M62.838 Other muscle spasm (principal)
CPT/HCPCS: 96372; 99284; J1885

== ENCOUNTER 2019-04-04 18:09 | Outpatient (CLI) | payer BC | END 2019-04-04 18:10 | disposition home or self-care (01) | LOC: LAB 18:09 ==